=== PATIENT | male | born 1950 | race Caucasian/White ===

== ENCOUNTER 2021-07-17 14:29 | Observation (INO) ==
[2021-07-17 15:14] LABS: Basophils % 0.2 % (0.0-0.8); Eosinophils # 0.2 10*3/uL (0.0-0.87); Eosinophils % 1.2 % (0.00-10.9); Hematocrit 46.9 VOL% (42.0-52.0); Hemoglobin 16.1 GM/DL (14.0-18.0); Immature Granulocytes % 0.5 %; Immature Granulocytes Absolute 0.08 #; Lymphocytes # 1.4 10*3/uL (1.4-4.0); Lymphocytes % 8.6 % (21.2-54.2); Mean Corpuscular HGB Conc 34.3 GM/DL (32-36); Mean Corpuscular Volume 91.1 FL (87-102); Mean Platelet Volume 11.1 FL (9.6-12.0); Neutrophils % 83.5 % (38.7-73.9); Platelet Count 210 T/CUMM (130-400); Red Blood Count 5.15 MC/CUMM (3.8-5.5); Red Cell Distribution Width 13.5 % (9.3-17.3); White Blood Count 16.2 T/CUMM (4-12)
[2021-07-17 15:56] LABS: Albumin 4.5 G/DL (3.4-5.0); Bilirubin,Total 1.4 MG/DL (0.20-1.00); Osmolality,Calculated 272.1 MOS/KG (273-304); Total Protein 8.3 G/DL (6.4-8.2)
[2021-07-17] MEDS ORDERED: hydrALAZINE 20 MG/1 ML VIAL IV STA (15:56)
[2021-07-17] MEDS ORDERED: hydrALAZINE 20 MG/1 ML VIAL IV PRN (17:04)
[2021-07-17] MEDS ORDERED: ONDANSETRON 4 MG/2 ML VIAL IV PRN (17:04)
[2021-07-17] MEDS ORDERED: GLUCAGON 1 MG VIAL IM PRN (17:04)
[2021-07-17] MEDS ORDERED: DEXTROSE 50% 25 GM/50 ML VIAL IV PRN (17:04)
[2021-07-17] MEDS ORDERED: ACETAMINOPHEN 325 MG TABLET PO PRN (17:04)
[2021-07-17] MEDS ORDERED: ZALEPLON 5 MG CAPSULE PO PRN (17:04)
[2021-07-17] MEDS ORDERED: NITROGLYCERIN SL 0.4 MG TABLET SL PRN (17:11)
[2021-07-17 17:39] LABS: ABG Base Excess 2.7 MMOL/L (-2.5-2.5); ABG HCO3 26.8 MMOL/L (20-26); ABG Oxygen Saturation 97.7 % (95-100); ABG PCO2 40.9 MM HG (35-48); ABG PH 7.431 (7.35-7.45); ABG PO2 90.9 MM HG (80-95); ABG TCO2 22.8 MMOL/L (23-27)
[2021-07-17 19:13] LABS: Risk Ratio 2.58; Thyroid Stimulating Hormone 3.94 uIU/ml (0.358-3.74); VLDL Cholesterol 18.2 MG/DL
[2021-07-17] MEDS: methylPREDNISolone SOD SUC 40 MG/1 ML VIAL IV SCH (19:29)
[2021-07-17] MEDS: ALBUTEROL/IPRATROPIUM 3 ML NEB RESP TX SCH ×2 (19:54→23:18)
[2021-07-17] MEDS: APIXABAN 5 MG TABLET PO SCH (20:50)
[2021-07-17] MEDS: carvediloL 25 MG TABLET PO SCH (20:50)
[2021-07-18 01:46] LABS: Basophils % 0.1 % (0.0-0.8); Eosinophils % 0.2 % (0.00-10.9); Hematocrit 44.1 VOL% (42.0-52.0); Hemoglobin 15.3 GM/DL (14.0-18.0); Immature Granulocytes % 0.4 %; Immature Granulocytes Absolute 0.05 #; Lymphocytes # 0.8 10*3/uL (1.4-4.0); Lymphocytes % 6.6 % (21.2-54.2); Mean Corpuscular HGB Conc 34.7 GM/DL (32-36); Mean Corpuscular Volume 91.1 FL (87-102); Monocytes % 1.1 % (1.7-12.7); Neutrophils % 91.6 % (38.7-73.9); Platelet Count 180 T/CUMM (130-400); Red Blood Count 4.84 MC/CUMM (3.8-5.5); Red Cell Distribution Width 13.6 % (9.3-17.3); White Blood Count 12.5 T/CUMM (4-12)
[2021-07-18 02:02] LABS: Calcium 9.3 MG/DL (8.5-10.1); Osmolality,Calculated 271.4 MOS/KG (273-304); Potassium 4.1 MMOL/L (3.5-5.1)
[2021-07-18] MEDS: methylPREDNISolone SOD SUC 40 MG/1 ML VIAL IV SCH ×2 (02:12→08:37)
[2021-07-18 02:20] LABS: Eosinophils 1 % (0-10); Lymphocytes 6 % (20-55); Platelet Estimate Normal; Segmented Neutrophils 93 % (50-85); Total Cells Counted 100
[2021-07-18 02:21] LABS: Microcytosis Slight
[2021-07-18 02:22] LABS: Polychromasia Slight; Stomatocytes Slight
[2021-07-18] MEDS: ALBUTEROL/IPRATROPIUM 3 ML NEB RESP TX SCH ×2 (03:36→07:15)
[2021-07-18] MEDS: APIXABAN 5 MG TABLET PO SCH (08:32)
[2021-07-18] MEDS: carvediloL 25 MG TABLET PO SCH (08:32)
[2021-07-18] MEDS ORDERED: LOSARTAN 50 MG TABLET PO SCH (09:00)
[2021-07-18] MEDS ORDERED: PANTOPRAZOLE 40 MG TABLET PO SCH (09:00)
[2021-07-18] MEDS ORDERED: ASPIRIN EC 81 MG TABLET PO SCH (09:00)
[2021-07-18] MEDS ORDERED: LEVOTHYROXINE 25 MCG TABLET PO SCH (09:00)
[2021-07-18] MEDS ORDERED: FUROSEMIDE 40 MG TABLET PO SCH (09:00)
[2021-07-18] MEDS ORDERED: ROSUVASTATIN 20 MG TABLET PO SCH (09:00)
[2021-07-18] MEDS ORDERED: SPIRONOLACTONE 25 MG TABLET PO SCH (09:00)
[2021-07-18 10:47] VITALS: BP 140/70
[2021-07-18] MEDS ORDERED: risperiDONE 0.5 MG TABLET PO SCH (21:00)
[2021-07-18] MEDS ORDERED: PARoxetine 20 MG TABLET PO SCH (21:00)
== END 2021-07-18 10:55 | disposition home or self-care (01) ==
LOC: N.ED 14:29 → N.EDINP 14:29 → SUATTDRO 17:04 → N.EDINP 19:49 → N.5E 20:18
PROVIDERS: ADMIT Internal Medicine; ATTEND Internal Medicine